=== PATIENT | female | born 1980 | race Caucasian/White ===

== ENCOUNTER 2017-01-28 07:33 | Emergency (ER) | payer MEDICAID ==
[~2017-01-28] VITALS: Ht 152.4 cm; Wt 62.5 kg
[2017-01-28 07:36] VITALS: Ht 152.4 cm; Wt 62.5 kg
[2017-01-28] MEDS ORDERED: ONDANSETRON 4 MG INJ IV STA (08:51)
[2017-01-28] MEDS ORDERED: SOD CHLORIDE 0.9% 1,000 ML IV STA ×2 (08:51→11:52)
[2017-01-28] MEDS ORDERED: FAMOTIDINE 20 MG INJ IV STA (08:51)
[2017-01-28] MEDS ORDERED: KETOROLAC 30 MG INJ IV STA (08:51)
--- NOTE | 2017-01-28 09:09 | ERD ---
ER Documentation Chief Complaint Chief Complaint pt bib family with c/o abd pain and vomiting since 2 am HPI 36 y/o female, previously healthy, presents to the ED c/o sudden onset of severe abdominal pain, located on left lower quadrant. The pain woke her up at 2 am associated with persistent bilious emesis >8 episodes. The pain is described as dull, rated 9/10, no radiated. No treatment attempted, no previous episodes, no recent traveling, no suspicious food. Last BM: at 6am Normal. Denies fever, diarrhea, constipation, no urinary symptoms, no vaginal discharge. ROS SYSTEMIC symptoms: no fever, but chills, no night sweats EYE symptoms: No eyesight problems. OTOLARYNGEAL symptoms: No hearing loss. CARDIOVASCULAR symptoms: No chest pain or discomfort, no palpitations. PULMONARY symptoms: No dyspnea, no cough, no wheezing. GASTROINTESTINAL symptoms: (+) abdominal pain, (+) nausea, (+)vomiting SKIN no rashes MUSCULOSKELETAL symptoms: No arthralgias, no muscle aches. NEUROLOGY symptoms: No confusion, no syncope, no numbness or tingling. Medications Home Meds Active Scripts Tamsulosin Hcl* (Flomax*) 0.4 Mg Cap.er.24h, 0.4 MG PO BID for 5 Days, #10 CAP Prov:KEVIN STERN MD 01/28/17 Ondansetron (Ondansetron Odt) 4 Mg Tab.rapdis, 4 MG PO Q6H Y for NAUSEA AND/OR VOMITING, #10 TAB Prov:KEVIN STERN MD 01/28/17 Hydrocodone/Acetaminophen (Marston 5-325 Tablet) 1 Each Tablet, 1 TAB PO Q6H Y for PAIN, #20 TAB Prov:KEVIN STERN MD 01/28/17 Ciprofloxacin Hcl* (Ciprofloxacin Hcl*) 500 Mg Tablet, 500 MG PO BID for 7 Days , TAB Prov:KEVIN STERN MD 01/28/17 Allergies Allergies: Coded Allergies: No Known Drug Allergy (Verified Allergy, Mild, 07/28/06) PMhx/Soc Denies personal or DM, HTN, CAD, cancer. Mother with DM Non smoker Denies the use of recreational drugs Physical Exam Vitals Vital Signs Date Time Temp Pulse Resp B/P Pulse Ox O2 Delivery O2 Flow Rate FiO2 10/21/17 07:36 97.4 81 16 143/97 97 Physical Exam Patient is in moderate distress due to pain, vital signs showed elevated BP, OTW stable. Alert and fully oriented. EYES: PERRLA, EOMI, Sclera and conjunctiva appear normal. THROAT: Dry oral mucosa. NECK: Supple, No lymphadenopathy. Full ROM without pain or tenderness. HEART: RRR, no rubs, murmurs, clicks or gallops. LUNGS: Bilateral rhonchi to auscultation, no wheezing ABDOMEN: guarded, tender to palpation left lower quadrant. without masses or hepatosplenomegaly. (+) rebound (-)[place] EXTREMITIES: No edema bilaterally. Result Diagram: 01/28/1790101/28/17901 Results 24 hrs Laboratory Tests Test 01/28/17 09:02 01/28/17 13:23 White Blood Count 16.610^3/ul Red Blood Count 4.3410^6/ul Hemoglobin 13.5g/dl Hematocrit 39.3% Mean Corpuscular Volume 90.6fl Mean Corpuscular Hemoglobin 31.1pg Mean Corpuscular Hemoglobin Concent 34.4g/dl Red Cell Distribution Width 12.4% Platelet Count 92731^3/UL Mean Platelet Volume 11.1fl Neutrophils % 89.3% Lymphocytes % 6.0% Monocytes % 4.0% Eosinophils % 0.0% Basophils % 0.2% Nucleated Red Blood Cells % 0.0/100WBC Neutrophils # 14.910^3/ul Lymphocytes # 1.010^3/ul Monocytes # 0.710^3/ul Eosinophils # 0.010^3/ul Basophils # 0.010^3/ul Nucleated Red Blood Cells # 0.010^3/ul Sodium Level 142mmol/L Potassium Level 4.2mmol/L Chloride Level 108mmol/L Carbon Dioxide Level 23mmol/L Anion Gap 15 Blood Urea Nitrogen 15mg/dl Creatinine 0.93mg/dl Glucose Level 139mg/dl Calcium Level 9.6mg/dl Total Bilirubin 0.4mg/dl Direct Bilirubin 0.00mg/dl Indirect Bilirubin 0.4mg/dl Aspartate Amino Transf (AST/SGOT) 33IU/L Alanine Aminotransferase (ALT/SGPT) 40IU/L Alkaline Phosphatase 45IU/L Total Protein 8.6g/dl Albumin 4.4g/dl Globulin 4.20g/dl Albumin/Globulin Ratio 1.04 Lipase 43U/L Bedside Urine pH (LAB) 7.5 Bedside Urine Protein (LAB) Trace Bedside Urine Glucose (UA) Negative Bedside Urine Ketones (LAB) 4+ Bedside Urine Blood 3+ Bedside Urine Nitrite (LAB) Negative Bedside Urine Leukocyte Esterase (L Negative Current Medications Medications (Trade) Dose Ordered Sig/Barb Route PRN Reason Start Time Stop Time Status Last Admin Dose Admin Sodium Chloride (NS) 1,000 ml @ 1,000 mls/hr Q1H STAT IV 01/28/17 08:51 01/28/17 09:50 DC 01/28/17 09:47 Ondansetron HCl (Zofran Inj) 4 mg ONCE STAT IV 01/28/17 08:51 01/28/17 08:56 DC 01/28/17 09:10 Famotidine (Pepcid Iv) 20 mg ONCE STAT IV 01/28/17 08:51 01/28/17 08:56 DC 01/28/17 09:10 Ketorolac Tromethamine 30 mg 30 mg ONCE STAT IV 01/28/17 08:51 01/28/17 08:56 DC 01/28/17 09:11 Ceftriaxone Sodium 50 ml @ 100 mls/hr ONCE ONCE IVPB 01/28/17 11:30 01/28/17 11:59 DC 01/28/17 11:41 Sodium Chloride (NS) 1,000 ml @ 1,000 mls/hr Q1H STAT IV 01/28/17 11:52 01/28/17 12:51 DC 01/28/17 11:59 Acetaminophen/ Hydrocodone Bitart (Marston (5/325)) 1 tab ONCE ONCE PO 01/28/17 13:30 01/28/17 13:31 01/28/17 13:24 Procedures/MDM Abdominal pain: moderate suspicion for acute abdomen differential includes: cholelithiasis, cholecystitis. appendicitis, UTI, pancreatitis, renal stone. Labs reviewed and discussed with the patient and her : CBC:Leukocytosis with left shift CMP, lipase: normal renal function, normal kidney function 1. Left ureteral Stone: Case d/w with Dr. Kelley, Urologist, recommend DC patient with antibiotics and pain control. 3mm stone high chance of passing without complications. Recommend f/u with PCP. 2. Cholelithiasis: No evidence of cholecystitis or obstruction. LFT in normal range. Dietary recommendations given with ER precautions and f/u with PCP. 3. Abdominal pain: resolved after IV toradol and Marston 4. Dehydration: Resolved, the patient received NS 2L CT abdomen: FINDINGS: The lung bases are clear. There is limited evaluation of the solid viscera from the lack of IV contrast. There is a distal left ureteral stone that measures 3 mm at the UVJ and this results in mild left-sided hydronephrosis and perinephric fat stranding. No other renal or ureteral calculi are present with no right-sided hydronephrosis. There is normal density of the liver with no gross focal lesion or biliary ductal dilatation. The gallbladder has multiple gallstones without surrounding inflammation. The spleen is unremarkable without mass. The adrenal glands are within normal limits without mass. The pancreas is unremarkable without focal lesion or surrounding inflammatory changes. There is no bowel obstruction or focal bowel inflammation. The appendix is unremarkable. There is no free air or free fluid. There are no enlarged lymph nodes. The aorta is unremarkable and there is no acute osseous abnormality. The uterus and adnexal structures are grossly unremarkable. IMPRESSION: Obstructing distal left ureteral stone measures 3 mm and results in left-sided mild hydronephrosis and perinephric fat stranding. No evidence of bowel obstruction or inflammation. There is no appendicitis. There is cholelithiasis without cholecystitis. 10:50 The patient refers feeling better, nausea resolved. Pain is now 5/10 Departure Diagnosis: Primary Impression: Left ureteral stone Additional Impressions: Abdominal pain Dehydration Cholelithiases Condition: Stable Additional Instructions: Por favor jordy hill de seguimiento con serna doctor primario en 2 o 3 days y lleve con usted estos documentos y las medicinas que le hemos recetado. Si armando sintomas empeoran o no mejoran, por favor regrese a hiro de emergencia. Please schedule a follow up appointment with your primary doctor in 2 days and bring all the information and prescriptions that we have given to you today. If the doctor is unavailable and the symptoms persist or worsen, the patient should return to the hospital immediately. KEVIN STERN MD Jan 28, 2017 09:03
[2017-01-28 09:21] LABS: BASOPHILS % 0.2 % (0.0-2.0); HEMATOCRIT 39.3 % (37.0-47.0); HEMOGLOBIN 13.5 g/dl (12.0-16.0); MEAN CORPUSCULAR HEMOGLOBIN 31.1 pg (29.0-33.0); MEAN CORPUSCULAR HGB CONC 34.4 g/dl (32.0-37.0); MEAN CORPUSCULAR VOLUME 90.6 fl (82.0-101.0); MEAN PLATELET VOLUME 11.1 fl (7.4-10.4); MONOCYTE # 0.7 10^3/ul (0.3-0.9); NEUTROPHIL # 14.9 10^3/ul (1.6-7.5); NEUTROPHILS % 89.3 % (39.0-77.0); PLATELET COUNT 235 10^3/UL (140-415); RED BLOOD COUNT 4.34 10^6/ul (4.20-5.40); RED CELL DISTRIBUTION WIDTH 12.4 % (11.5-14.5); WHITE BLOOD COUNT 16.6 10^3/ul (4.8-10.8)
[2017-01-28 09:45] LABS: ALBUMIN 4.4 g/dl (3.3-4.9); ALBUMIN/GLOBULIN RATIO 1.04; BILIRUBIN,INDIRECT 0.4 mg/dl (0-1.1); BILIRUBIN,TOTAL 0.4 mg/dl (0.2-1.3); CALCIUM 9.6 mg/dl (8.4-10.2); CREATININE 0.93 mg/dl (0.44-1.00); POTASSIUM 4.2 mmol/L (3.5-5.1); TOTAL PROTEIN 8.6 g/dl (6.1-8.1)
--- NOTE | 2017-01-28 10:14 | RADRPT ---
PROCEDURE: CT abdomen and pelvis without contrast. CLINICAL INDICATION: Abdominal pain. TECHNIQUE: CT scan of the abdomen and pelvis without contrast was performed on a multi-slice CT [facility] hospital. Sagittal and coronal reformatted images were obtained from the axial source images. One or more of the following dose reduction techniques were used: - Automated exposure control. - Adjustment of the mA and/or kV according to patient size. - Use of iterative reconstruction technique. DLP 415.3 mGycm. CTDIvol 7.9 mGy COMPARISON: None FINDINGS: The lung bases are clear. There is limited evaluation of the solid viscera from the lack of IV con trast. There is a distal left ureteral stone that measures 3 mm at the UVJ and this results in mild left-si ded hydronephrosis and perinephric fat stranding. No other renal or ureteral calculi are present wit h no right-sided hydronephrosis. There is normal density of the liver with no gross focal lesion or biliary ductal dilatation. The gallbladder has multiple gallstones without surrounding inflammation. The spleen is unremarkable without mass. The adrenal glands are within normal limits without mass. The pancreas is unremarkable without focal lesion or surrounding inflammatory changes. There is no bowel obstruction or focal bowel inflammation. The appendix is unremarkable. There is no free air or free fluid. There are no enlarged lymph nodes. The aorta is unremarkable and there is no acute osseous abnormality. The uterus and adnexal structures are grossly unremarkable. IMPRESSION: Obstructing distal left ureteral stone measures 3 mm and results in left-sided mild hydronephrosis a nd perinephric fat stranding. No evidence of bowel obstruction or inflammation. There is no appendicitis. There is cholelithiasis without cholecystitis. RPTAT: AA .Raul Pappas MD, MD Date Time Electronically viewed and signed by .Raul Pappas MD, MD on 01/28/2017 10:13 .J/
[2017-01-28] MEDS ORDERED: CEFTRIAXONE 2 GM/50 ML (PMX) 50 ML IVPB ONE (11:30)
[2017-01-28 13:23] LABS: URINE BLOOD (Dip) POC 3+ (NEGATIVE)
[2017-01-28] MEDS ORDERED: ONDA4TAB14 PO (13:25)
[2017-01-28] MEDS ORDERED: HYDR-906 PO (13:25)
[2017-01-28] MEDS ORDERED: CIPR500T4 PO (13:25)
[2017-01-28] MEDS ORDERED: TAMS-14 PO (13:25)
[2017-01-28] MEDS ORDERED: HYDROCODONE/APAP (5/325) TAB PO ONE (13:30)
[2017-01-28 13:42] VITALS: BP 107/67; PULSE 72; RESP 16; TEMP 98.2
[2017-01-28 14:24] LABS: ADD UMIC YES; UR ASCORBIC ACID NEGATIVE (NEGATIVE); UR BACTERIA FEW /HPF (NONE SEEN); UR BILIRUBIN (Dip) NEGATIVE (NEGATIVE); UR BLOOD (Dip) 2+ mg/dL (NEGATIVE); UR CLARITY CLEAR (CLEAR); UR COLOR YELLOW (YELLOW); UR GLUCOSE (Dip) NEGATIVE (NEGATIVE); UR KETONES (Dip) 2+ mg/dL (NEGATIVE); UR LEUKOCYTE ESTERASE (Dip) NEGATIVE Leu/ul (NEGATIVE); UR NITRITE (Dip) NEGATIVE (NEGATIVE); UR RBC 56 /HPF (0-5); UR SPECIFIC GRAVITY (Dip) 1.021 (1.003-1.030); UR TOTAL PROTEIN (Dip) NEGATIVE (NEGATIVE); UR UROBILINOGEN (Dip) NEGATIVE (NEGATIVE)
== END 2017-01-28 13:44 | disposition home or self-care (01) ==
LOC: FTE 07:33
DX: N20.1 Calculus of ureter (principal); E86.0 Dehydration; K80.20 Calculus of gallbladder without cholecystitis without obstruction
CPT/HCPCS: 36415; 74176; 80053; 81001; 83690; 85025; 87040; 87086; 96374; 96375; J0696; J1885; J2405; J7030; Z7502; Z7610; 81003